=== PATIENT | male | born 1965 | race Caucasian/White ===

== ENCOUNTER 2018-02-09 00:59 | Emergency (ER) | payer OTHER ==
[~2018-02-09] VITALS: Ht 177.8 cm; Wt 90.7 kg
[~2018-02-09 00:59] MED LIST: ATORVASTATIN CA20 M1 PO; CLONIDINE HCL0.1 MG PO; ESCITALOPRAM OX20 MG PO; FLECTOR1 EACH TOP; GABAPENTIN300 M2 PO; PANTOPRAZOLE SO40 M1 PO; QUETIAPINE FUMA50 M1 PO; REQUIP4 MG PO; TRUVADA 200 MG1 EACH PO; TYLENOL EXTRA500 M2 PO
[2018-02-09 01:03] VITALS: BP 152/94
--- NOTE | 2018-02-09 01:12 | ED THROAT/DENTAL COMPLAINT ---
History of Present Illness General Chief Complaint: Sore Throat, Dental Pain Stated Complaint: PT C/O DENTAL PAIN "NEED PAIN MED" Source: patient Exam Limitations: no limitations Vital Signs & Intake/Output Vital Signs & Intake/Output Vital Signs Date Time Temp Pulse Resp B/P B/P Pulse O2 O2 Flow FiO2 Mean Ox Delivery Rate 02/09 0106 97 Room Air 02/09 0103 98.0 80 18 152/94 96 Room Air Allergies Coded Allergies: NO KNOWN ALLERGIES (02/05/14) Reconcile Medications Amoxicillin/Potassium Clav (Augmentin 875-125 Tablet) 875 MG-125 MG TABLET 1 TAB PO BID infection Atorvastatin Calcium 20 MG TABLET 1 TAB PO DAILY CHOLESTEROL (Reported) Clonidine HCl 0.1 MG TABLET 1 TAB PO TID PRN ANXIETY (Reported) Diclofenac Epolamine (Flector) 1 EACH PATCH.TD12 1 PAT TOP Thursday PAIN (Reported) Emtricitabine/Tenofovir (Truvada 200 MG-300 MG Tablet) 1 EACH TABLET 1 TAB PO DAILY IMMUNE SUPPORT (Reported) Escitalopram Oxalate 20 MG TABLET 1 TAB PO DAILY MENTAL HEALTH (Reported) Gabapentin 300 MG CAPSULE 2 CAP PO QPM UNKNOWN (Reported) Ibuprofen 800 MG TABLET 1 TAB PO TID PRN pain Oxycodone HCl/Acetaminophen (Percocet 5-325 MG Tablet) 5 MG-325 MG TABLET 1 TAB PO 4XDP PRN PAIN eight..[id number] Pantoprazole Sodium 40 MG TABLET.DR 1 TAB PO DAILY GI (Reported) Quetiapine Fumarate 50 MG TABLET 1 TAB PO QPM SLEEP/MENTAL HEALTH (Reported) Ropinirole HCl (Requip) 4 MG TABLET 1 TAB PO QPM RESTLESS LEGS (Reported) Triage Note: PT FROM HOME C/O DENTAL PAIN. PT STATES THAT 2X DAYS AGO HE BEGAN TO HAVE DENTAL PAIN TO THE UPPER 3 TEETH IN THE BACK OF HIS MOUTH. PT STATES MEDCIATED WITH TYLENOL AND MOTRIN WITH NO RELIEF. VSS. 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 Triage Nurses Notes Reviewed? yes Onset: Gradual Duration: day(s): Timing: recent history Injury Environment: home Severity: mild Modifying Factors: Worsens With: other (worse w/palpation). Associated Symptoms: dental pain HPI: 52 yo gentleman presents with 2 days of right upper dental pain. Tenderness with palpation in right upper 3 molar teeth. No fever, chills, difficulty swallowing or speaking. He is otherwise well. Past History Travel History Traveled to [place] past 21 day No Medical History Any Pertinent Medical History? 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 No Review of Systems Review of Systems Constitutional: Reports: no symptoms. EENTM: Reports: no symptoms. Respiratory: Reports: no symptoms. Cardiovascular: Reports: no symptoms. GI: Reports: no symptoms. Genitourinary: Reports: no symptoms. Musculoskeletal: Reports: no symptoms. Skin: Reports: no symptoms. Neurological/Psychological: Reports: no symptoms. Hematologic/Endocrine: Reports: no symptoms. Immunologic/Allergic: Reports: no symptoms. All Other Systems: Reviewed and Negative Physical Exam Physical Exam General Appearance: well developed/nourished, no apparent distress Head: atraumatic, normal appearance Eyes: Bilateral: normal appearance. Nose: normal inspection Mouth/Throat: right upper gum line with tenderness to palpation, poor dentition. mild erythema. Neck: normal inspection Neurologic/Psych: no motor/sensory deficits, awake, alert, oriented x 3 Skin: intact, normal color, warm/dry Core Measures ACS in differential dx? No Sepsis Present: No Sepsis Focused Exam Completed? No Progress Differential Diagnosis: dental abscess vs other. Plan of Care: augmentin, pain meds... pt encouraged to follow up with dentist. Departure Departure Disposition: HOME OR SELF CARE Condition: Stable Clinical Impression Primary Impression: Dental infection Referrals: Jeni Tate APRN (PCP/Family) Departure Forms: Customer Survey General Discharge Information Prescriptions: Current Visit Scripts Oxycodone HCl/Acetaminophen (Percocet 5-325 MG Tablet) 1 TAB PO 4XDP PRN PAIN #8 TAB eight..[id number] Amoxicillin/Potassium Clav (Augmentin 253-605 Tablet) 1 TAB PO BID #20 TAB Ibuprofen 1 TAB PO TID PRN pain #30 TAB
[2018-02-09] MEDS ORDERED: AUGMENTIN 875-1 EACH PO (01:27)
[2018-02-09] MEDS ORDERED: PERCOCET 5-3251 EACH PO (01:27)
[2018-02-09] MEDS ORDERED: IBUPROFEN800 M1 PO (01:27)
== END 2018-02-09 01:35 ==
LOC: ERH 00:59
DX: K04.7 Periapical abscess without sinus (principal)